=== PATIENT | male | born 1985 | race Caucasian/White ===

== ENCOUNTER 2021-03-05 11:26 | Day surgery (SDC) | payer BC, SELFPAY ==
[2021-03-03 12:08] LABS: BASOPHILS # (AUTO) 0.1 K/uL (0.0-0.2); BASOPHILS % (AUTO) 0.6 % (0.0-2.0); EOSINOPHILS # (AUTO) 0.1 K/uL (0.0-0.4); HEMATOCRIT 46.7 % (36-54); HEMOGLOBIN 16.6 g/dL (14.0-18.0); LYMPHOCYTES # (AUTO) 3.2 K/uL (1.0-5.5); LYMPHOCYTES % (AUTO) 29.3 % (20.5-51.5); MEAN CORPUSCULAR HEMOGLOBIN 32 pg (27-31); MEAN CORPUSCULAR HGB CONC 35 % (32-36); MEAN CORPUSCULAR VOLUME 90 fL (79.0-98.0); MONOCYTES # (AUTO) 0.6 K/uL (0.0-1.0); MONOCYTES % (AUTO) 5.7 % (1.7-9.3); NEUTROPHILS % (AUTO) 63.4 % (40.0-70.0); PLATELET COUNT (AUTO) 191 K/uL (130-430); RED CELL DISTRIBUTION WIDTH 12.9 % (9.0-15.0)
[2021-03-03 12:20] LABS: CALCIUM 8.6 mg/dL (8.4-11.0); CREATININE 0.85 mg/dL (0.55-1.30); POTASSIUM 3.9 mmol/L (3.5-5.1)
[2021-03-03 12:21] LABS: BILIRUBIN,URINE NEGATIVE (NEGATIVE); BLOOD, URINE NEGATIVE (NEGATIVE); CLARITY/URINE CLEAR (CLEAR); COLOR,URINE YELLOW (YELLOW); GLUCOSE,URINE NEGATIVE (NEGATIVE); KETONES,URINE NEGATIVE (NEGATIVE); LEUKOCYTE ESTERASE ,URINE NEGATIVE (NEGATIVE); NITRITE, URINE NEGATIVE (NEGATIVE); PROTEIN URINE NEGATIVE (NEGATIVE); UROBILINOGEN,URINE 0.2 (0.2-1.0)
[2021-03-03 12:26] LABS: PROTHROMBIN TIME 9.9 SECS (9.5-12.5)
[~2021-03-05] VITALS: Ht 175.3 cm; Wt 90.7 kg
[2021-03-05] MEDS ORDERED: ONDANSETRON HCL 4 MG/2 ML VIAL IVP ONE (12:24)
[2021-03-05] MEDS ORDERED: SEVOFLURANE 15 MIN GAS INH ONE (12:24)
[2021-03-05] MEDS ORDERED: fentaNYL CITRATE/PF 100 MCG/2 ML AMP IVP ONE (12:24)
[2021-03-05] MEDS ORDERED: LR 500 ML IV.SOLN IV ONE (12:24)
[2021-03-05] MEDS ORDERED: GLYCOPYRROLATE 0.2 MG/ML VIAL IJ ONE (12:24)
[2021-03-05] MEDS ORDERED: BUPIVACAINE /PF 0.25% 30 ML VIAL INJ ONE (12:24)
[2021-03-05] MEDS ORDERED: MIDAZOLAM HCL 5 MG/5 ML VIAL IVP ONE (12:24)
[2021-03-05] MEDS ORDERED: CEFAZOLIN 2 GM IVPB PREMIX 50 ML IV ONE (12:24)
[2021-03-05] MEDS ORDERED: LIDOCAINE 1% 10 MG/ML, 20 ML MDV IM ONE (12:24)
[2021-03-05] MEDS ORDERED: NS IRRIG SOLN 1000 ML IR ONE (12:24)
[2021-03-05] MEDS ORDERED: KETOROLAC TROMETHAMINE 30 MG VIAL IVP ONE (12:24)
[2021-03-05] MEDS ORDERED: PROPOFOL 200MG/ 20ML VIAL (DIPRIVAN) IV ONE (12:24)
[2021-03-05] MEDS ORDERED: DEXAMETHASONE SOD PHOSPHATE 4 MG/ML VIAL IVP ONE (12:24)
[2021-03-05] MEDS ORDERED: LR 1,000 ML IV SCH (13:00)
[2021-03-05] MEDS ORDERED: KETOROLAC TROMETHAMINE 30 MG VIAL IVP PRN (13:00)
[2021-03-05] MEDS ORDERED: ONDANSETRON HCL 4 MG/2 ML VIAL IVP PRN (13:00)
[2021-03-05 15:25] VITALS: BP_SYST 135
== END 2021-03-05 15:10 | disposition home or self-care (01) ==
LOC: SOR 11:26
PROVIDERS: ATTEND Orthopaedic Surgery
DX: M71.342 Other bursal cyst, left hand (principal); E66.01 Morbid (severe) obesity due to excess calories; Z79.01 Long term (current) use of anticoagulants; Z79.899 Other long term (current) drug therapy
CPT/HCPCS: 26160; 36415; 80048; 81003; 85025; 85610; 85730; 87086; 87426; 88304; J0690; J1100; J1885; J2001; J2250; J2405; J2704; J3010; J3490 ×2; J7120